=== PATIENT | male | born 1950 ===

== ENCOUNTER 2022-02-04 15:44 | Emergency (ER) | payer OTHER ==
[~2022-02-04] VITALS: Ht 182.9 cm; Wt 72.6 kg
[2022-02-04] MEDS ORDERED: CARDURA8 MG (15:52)
[2022-02-04] MEDS ORDERED: DIOVAN160 M1 (15:52)
== END 2022-02-04 21:19 | disposition home or self-care (01) ==
LOC: ER 15:44
DX: S09.90XA Unspecified injury of head, initial encounter (principal); W17.89XA Other fall from one level to another, initial encounter; Y93.9 Activity, unspecified; Y92.019 Unspecified place in single-family (private) house as the place of occurrence of the external cause; I10 Essential (primary) hypertension